=== PATIENT | male | born 1985 | race Caucasian/White ===

== ENCOUNTER → 2023-06-12 12:49 | Outpatient (CLI) | payer OTHER, SELFPAY ==
--- NOTE | 2023-06-12 13:03 | CA_ITS ---
APPROVED REPORT EXAM: Comprehensive 2D, Doppler, and color-flow Echocardiogram Poll Watcher: Julianna Jiang, RCS, RVS Ht: 6 ft 0 in Wt: 190lbs BSA: 2.08 BP: 120/70 mmHg Indications: Murmur, [place] physical 2D Dimensions Aortic Root 2.77 cm M: 3.1 - 3.7 LA Volume 47.30 mL Left Atrium 2.19 cm M: 3.0 - 4.0 LA Volume Index 22.74 mL/m2 (M/F) 16-34 LVOT 1.84 cm (M/F) 1.5-2.5 M-Mode Dimensions RVDd 2.88 cm (0.9-2.6) LA Diam 3.87 cm (1.9-4.0) LVDd 4.66 cm (3.5-5.7) Ao Diam 3.34 cm (2.0-3.7) LVDs 2.98 cm (3.5-5.7) IVSd 1.01 cm (0.6-1.1) PWd 0.87 cm (0.6-1.1) EF (Teich) 65.70% EPSs 0.39 cm FS 36.10% EDV (Teich) 100.30 mL ESV (Teich) 34.40 mL LV Diastology E Decel Time 223.00 (160-240 msec) E/A Ratio 1.13 MED E' 9.00 (< 7 cm/sec) MED A' 11.80 cm/s E'/MED E' Ratio 8.63 (>14) LAT E' 10.20 (<10 cm/sec) LAT A' 15.20 cm/s E/LAT E' Ratio 7.62 (>14) Aortic Valve LVOT Max 135.00 (70-110 cm/s) LVOT VTI 24.05 cm AoV Peak Sai. 153.00 (50-130 cm/s) AO Peak GR. 9.30 mmHg AO Mean GR. 4.60 (<5 mmHg) AO VTI 28.66 (18-25 cm) BALAJI (VTI) 2.23 (2.5-4.5 cm2) Mitral Valve MV A Velocity 69.00 (40-130 cm/s) E/A Ratio 1.13 MV Decel. Time 223.00 (160-240 ms) Tricuspid Valve TR P. Velocity 220.00 cm/s Left Ventricle The left ventricle is normal size. The left ventricular systolic function is normal. The left ventricular ejection fraction is within the normal range. There is normal left ventricular wall thickness. There is normal LV segmental wall motion. The left ventricular diastolic function is normal. LVEF is 60%. Right Ventricle The right ventricle is normal size. The right ventricular systolic function is normal. Atria The left atrium size is normal. The right atrium size is normal. There is no Doppler evidence of interatrial shunt. Aortic Valve The aortic valve is normal in structure. There is no aortic valvular stenosis. No aortic regurgitation is present. Mitral Valve The mitral valve is normal in structure. No evidence of mitral valve stenosis. There is no mitral valve regurgitation noted. Tricuspid Valve The tricuspid valve leaflets are thin and pliable. Trace tricuspid regurgitation. There is insufficient TR jet to estimate RVSP. Pulmonic Valve The pulmonary valve is normal in structure. Trace pulmonic regurgitation. Great Vessels The aortic root is normal in size. The ascending aorta is normal in size. IVC is normal in size and collapses >50% with inspiration. Pericardium There is no pericardial effusion. Other Information Study Quality: Fair Conclusion Normal biventricular systolic function. No significant valvular stenosis or regurgitation. Electronically signed by : Pam Lincoln MD 06/23/2023 20:04:34
== END ==
PROVIDERS: Visit Provider Chiropractor
DX: I25.10 Atherosclerotic heart disease of native coronary artery without angina pectoris (principal)
CPT/HCPCS: 93306